=== PATIENT | female | born 1990 | race Caucasian/White ===

== ENCOUNTER 2017-05-19 13:46 | Emergency (ER) | payer SELFPAY ==
[~2017-05-19] VITALS: Ht 157.5 cm; Wt 70.0 kg
[2017-05-19 13:49] VITALS: BP 138/85; PULSE 86; RESP 15; TEMP 98.4; O2SAT 98
--- NOTE | 2017-05-19 14:06 | PD ---
Physical Exam Time Seen by Provider: 14:05 Narrative 26 y/o female with L eye pain for one week. Vital signs reviewed. Seen at triage desk. Awaiting bed placement. Data Data Last Documented VS Vital Signs Date Time Temp Pulse Resp B/P Pulse Ox O2 Delivery O2 Flow Rate FiO2 05/19/17 13:49 98.4 86 15 138/85 98 MDM Medical Record Reviewed: Yes Supervised Visit with MACHO: No Gavino Hartley May 19, 2017 14:06
--- NOTE | 2017-05-19 14:08 | PD ---
HPI Chief Complaint: Eye Problems/Injury Time Seen by Provider: 14:08 Travel History International Travel<30 days: No Contact w/Intl Traveler<30days: No Traveled to known affect area: No History of Present Illness HPI 26 YO F presents to the ED for evaluation of 1 week history of left eye pain, worsening over the last two days. Patient endorses grainy sensation in the eye, photophobia, redness and increased tearing. Denies vision changes, acute injury , sick contacts. She states that she's been treating with Visine with no improvement of symptoms. PFSH Past Medical History ?: Not Social History Tobacco Use: No Allergies-Medications (Allergen,Severity, Reaction): Coded Allergies: No Known Allergies (Unverified , 05/19/17) Reported Meds & Prescriptions Reported Meds & Active Scripts Active Erythromycin Opth Oint 5 Mg/Gm Oint 1 Applic LEFT EYE QID 7 Days Review of Systems Except as stated in HPI: all other systems reviewed are Neg Physical Exam Narrative GENERAL: Well-nourished, well-developed female in [facility]. SKIN: Focused skin assessment warm/dry. HEAD: Normocephalic. EYES: No scleral icterus. LEFT eye mild to moderately injected, increased tearing. No disturbance of the palpebral surface. PERRLA. EOMI. OS intraocular pressure measured 15 and 19. FLUORESCEIN STAIN OS: No dye uptake noted under Wood's lamp. FUNDUSCOPIC EXAM: The left funduscopic exam appeared within normal limits without papilledema, A-V nicking or blood associated with the optic disc. NECK: Supple, trachea midline. No JVD or lymphadenopathy. CARDIOVASCULAR: Regular rate and rhythm without murmurs, gallops, or rubs. RESPIRATORY: Breath sounds equal bilaterally. No accessory muscle use. GASTROINTESTINAL: Abdomen soft, non-tender, nondistended. MUSCULOSKELETAL: No cyanosis, or edema. BACK: Nontender without obvious deformity. No CVA tenderness. Data Data Last Documented VS Vital Signs Date Time Temp Pulse Resp B/P Pulse Ox O2 Delivery O2 Flow Rate FiO2 05/19/17 13:49 98.4 86 15 138/85 98 Orders Proparacaine 0.5% Opth Soln (Alcaine 0.5 (05/19/17 14:15) Ibuprofen (Motrin) (05/19/17 15:00) [facility] Medical Decision Making Medical Screen Exam Complete: Yes Emergency Medical Condition: Yes Differential Diagnosis Conjunctivitis versus foreign body versus hordeolum versus iritis versus other Narrative Course 26 YO F presents to the ED for evaluation of 1 week history of left eye pain, worsening over the last two days. Patient endorses grainy sensation in the eye, photophobia, redness and increased tearing. Denies vision changes, acute injury , sick contacts. She states that she's been treating with Visine with no improvement of symptoms. Vitals reviewed. Physical exam reveals mild to moderate injection of the LEFT eye. PERRLA. EOMI. No fluorescein up take on Gordon lamp exam. Fundus exam unremarkable. OS intraocular pressures 15 and 19 respectively. No disturbance of the palpebral surfaces. Increased tearing throughout the exam. Suspect this is conjunctivitis. Patient does repeatedly rub the eye with a napkin and ice suspect this may be contributing to her pain symptoms. She is prescribed short course of ibuprofen and erythromycin ointment. She is instructed take ibuprofen 3 times a day, avoid touching or rubbing the eye, and still erythromycin ointment 4 times a day, follow-up with the warehouse processor, return for worsening symptoms. She indicated understanding of instructions and is agreeable to the care plan. The patient is stable and discharged home. Diagnosis Primary Impression: Conjunctivitis, left eye Qualified Code: H10.32 - Acute conjunctivitis of left eye, unspecified acute conjunctivitis type Referrals: [employer] Patient Instructions: Conjunctivitis (ED), General Instructions Additional Instructions: Rest, hydrate. Apply erythromycin ointment 4 times a day. Nothing else in the eye. Ibuprofen up to 4 times a day as needed for pain and inflammation. Warm compresses applied to the external eye may help to reduce your symptoms. Follow-up with the warehouse processor. Return to the ED for any urgent or emergent medical condition. Med/Other Pt SpecificInfo: Prescription(s) given Scripts Erythromycin Opth Oint 5 Mg/Gm Oint1 Applic LEFT EYE QID 7 Days Ref 0 Prov:Jovanni East MD 05/19/17 Disposition: 01 DISCHARGE HOME Condition: Stable June Knapp May 19, 2017 14:08
[2017-05-19] MEDS ORDERED: PROPARACAINE HCL 0.5% OPHT SOLN 15 ML BTL LEFT EYE ONE (14:15)
[2017-05-19] MEDS ORDERED: ERYTOIN10 LEFT EYE (14:49)
[2017-05-19] MEDS ORDERED: IBUPROFEN 600 MG TAB PO ONE (15:00)
== END 2017-05-19 16:34 | disposition home or self-care (01) ==
LOC: NEPK 13:46
DX: H10.32 Unspecified acute conjunctivitis, left eye (principal)
CPT/HCPCS: 99283